=== PATIENT | female | born 1990 | race Caucasian/White ===

== ENCOUNTER 2020-03-23 09:21 | Emergency (ER) | payer MEDICAID, OTHER, SELFPAY ==
[~2020-03-23] VITALS: Ht 175.3 cm; Wt 85.1 kg
--- NOTE | 2020-03-23 09:53 | NUR ---
PT C/O ABD PAIN AND CRAMPING THAT HAS GOTTEN PROGRESSIVELY WORSE SINCE WEDNESDAY. LABS DRAWN AND PT TO US.
[2020-03-23 10:00] LABS: BASOPHILS # (AUTO) 0.05 x10^3/uL (0-0.1); BASOPHILS % (AUTO) 1 % (0-1); EOSINOPHILS % (AUTO) 1 % (1-7); LYMPHOCYTES # (AUTO) 1.44 x10^3/uL (1-3.4); LYMPHOCYTES % (AUTO) 18 % (22-44); MD NO; MEAN CORPUSCULAR HEMOGLOBIN 30.4 pg (27.0-34.8); MEAN CORPUSCULAR HGB CONC 33.1 g/dL (32.4-35.8); MEAN PLATELET VOLUME 7.9 fL (7.4-10.4); MONOCYTES # (AUTO) 0.56 x10^3/uL (0.2-0.8); MONOCYTES % (AUTO) 7 % (2-9); NEUTROPHILS # (AUTO) 6.02 x10^3/uL (1.8-6.8); NEUTROPHILS % (AUTO) 74 % (42-75); PLATELET COUNT 266 x10^3/uL (130-400); RED BLOOD COUNT 4.59 x10^6/uL (3.82-5.3); RED CELL DISTRIBUTION WIDTH 13.4 % (9.6-15.2)
[2020-03-23 10:11] LABS: ANION GAP 5 mmol/L (5-15); CALCIUM 9.2 mg/dL (8.5-10.1); CHLORIDE 108 mmol/L (98-107); CREATININE 0.81 mg/dL (0.55-1.02)
[2020-03-23 10:12] LABS: ALBUMIN 4.3 g/dL (3.4-5.0)
--- NOTE | 2020-03-23 10:56 | NUR ---
CHART UP FOR MD RECHECK. PT AWARE. VSS.
[2020-03-23 10:58] VITALS: BP 134/78
== END 2020-03-23 11:47 | disposition home or self-care (01) ==
LOC: ED 09:56
DX: O20.0 Threatened abortion (principal); Z3A.11 11 weeks gestation of pregnancy
CPT/HCPCS: 36415; 76801; 80048; 82040; 84702; 85025; 86901; 99284